=== PATIENT | female | born 2000 | race American Indian/Alaskan Native ===

== ENCOUNTER 2018-04-12 17:19 | Emergency (ER) | payer MEDICAID ==
[2018-04-12 17:41] VITALS: BP 103/67; PULSE 100; RESP 20; TEMP 98.4; O2SAT 99
[2018-04-12] MEDS ORDERED: Amoxicillin-Clav 875-125 mg Tab PO STA (18:04)
[2018-04-12] MEDS ORDERED: Amoxicillin-Clav 875-125 mg Tab PO ONE (18:18)
--- NOTE | 2018-04-12 18:24 | ED PDOC ---
HPI: Skin/Bite Injury Time Seen by Provider: 04/12/18 17:45 Chief Complaint (Nursing): Abnormal Skin Integrity Chief Complaint (Provider): insect bites History Per: Patient, Family (mother) Additional Complaint(s): 18-year-old female presents with multiple insect bites to bilateral lower extremities status post being stung several times by mosquitoes last night. Patient woke up this morning with swelling and redness to insect bite regions. She is having difficulty walking secondary to pain and denies any fever or chills. No meds taken for relief of symptoms. PMD: none Past Medical History Reviewed: Historical Data, Nursing Documentation, Vital Signs Vital Signs: Last Vital Signs Temp 98.4 F 04/12/18 17:38 Pulse 100 H 04/12/18 17:38 Resp 20 04/12/18 17:38 BP 103/67 04/12/18 17:38 Pulse Ox 99 04/12/18 17:38 - Medical History PMH: No Chronic Diseases - Surgical History Surgical History: No Surg Hx - Family History Family History: States: No Known Family Hx - Living Arrangements Living Arrangements: With Family - Social History Current smoker - smoking cessation education provided: No Alcohol: None Drugs: Denies - Home Medications Home Medications: Ambulatory Orders Medication Instructions Recorded Amoxicillin/Clavulanate [Augmentin 1 tab PO BID #14 tab 04/12/18 875 MG-125 MG] Clindamycin [Cleocin] 300 mg PO TID #21 cap 04/12/18 Prednisone 50 mg PO DAILY #5 tablet 04/12/18 - Allergies Allergies/Adverse Reactions: Allergies Allergy/AdvReac Type Severity Reaction Status Date / Time No Known Allergies Allergy Verified 04/12/18 17:37 Review of Systems ROS Statement: Except As Marked, All Systems Reviewed And Found Negative Constitutional: Negative for: Fever Skin: Positive for: Other (multiple insect bites bilateral lower extremities) Physical Exam - Reviewed Nursing Documentation Reviewed: Yes Vital Signs Reviewed: Yes - Physical Exam Appears: Positive for: Well, Non-toxic, No Acute Distress Skin: Positive for: Rash (Multiple insect bites noted to bilateral lower extremities with localized surrounding erythema and induration, moderately tender to palpation with warmth) Eye Exam: Positive for: Normal appearance Cardiovascular/Chest: Positive for: Regular Rate, Rhythm Respiratory: Positive for: Normal Breath Sounds Neurologic/Psych: Positive for: Alert, Oriented - Laboratory Results Urine POC: Negative - ECG O2 Sat by Pulse Oximetry: 99 Pulse Ox Interpretation: Normal Medical Decision Making Medical Decision Making: Impression: Allergic reaction to insect bites Plan: test IM solumedrol 125 mg PO benadryl 50 mg Initial doses PO clindamycin and augmentin Patient given prescriptions for prednisone, clindamycin and Augmentin to cover for allergic reaction and possible infection of multiple insect bites to lower extremities. Advised Benadryl [id number] for itch relief and follow up with primary doctor in 2-3 days. Disposition - Clinical Impression Clinical Impression: Insect bites and stings - Patient ED Disposition Is Patient to be Admitted: No Counseled Patient/Family Regarding: Diagnosis, Need For Followup, Rx Given - Disposition Referrals: [facility] [Outside] Disposition: Routine/Home Disposition Time: 18:29 Condition: STABLE Additional Instructions: Take rx medications as directed along with over the counter benadryl (2 25 mg tabs every 6 hrs). Keep area clean and dry, do not apply any topical creams. Ice and elevate affected area. Follow-up in 2-3 days with primary care doctor or return to emergency room any time if acutely worse. Prescriptions: Amoxicillin/Clavulanate [Augmentin 875 MG-125 MG] 1 tab PO BID #14 tab Clindamycin [Cleocin] 300 mg PO TID #21 cap Prednisone 50 mg PO DAILY #5 tablet Instructions: Insect Bites and Stings
== END 2018-04-12 19:07 | disposition home or self-care (01) ==
LOC: H.ER 17:19
DX: S80.861A Insect bite (nonvenomous), right lower leg, initial encounter (principal); W57.XXXA Bitten or stung by nonvenomous insect and other nonvenomous arthropods, initial encounter; Y92.89 Other specified places as the place of occurrence of the external cause
CPT/HCPCS: 81025; 96372; 99282; J2930

== ENCOUNTER 2018-04-15 11:06 | Emergency (ER) | payer MEDICAID ==
[2018-04-15 11:22] VITALS: BMI 30.2
[2018-04-15 11:24] VITALS: BP 111/72; PULSE 74; RESP 16; TEMP 98.3; O2SAT 100
--- NOTE | 2018-04-15 11:51 | ED PDOC ---
HPI: Skin/Bite Injury Time Seen by Provider: 04/15/18 11:15 Chief Complaint (Nursing): Abnormal Skin Integrity History Per: Patient Onset/Duration Of Symptoms: Days (3) Current Symptoms Are (Timing): Better Location Of Injury: Right: Leg, Left: Leg Quality Of Symptoms: Itching Additional Complaint(s): Seen in ED 3 days post mosquito bites. Improved but still with itching. Redness and swelling improved. Past Medical History Vital Signs: Last Vital Signs Temp 98.3 F 04/15/18 11:23 Pulse 74 04/15/18 11:23 Resp 16 04/15/18 11:23 BP 111/72 04/15/18 11:23 Pulse Ox 100 04/15/18 11:23 - Medical History PMH: No Chronic Diseases - Family History Family History: States: Unknown Family Hx - Home Medications Home Medications: Ambulatory Orders Medication Instructions Recorded Cephalexin [Keflex] 500 mg PO QID #20 cap 02/18/16 Naproxen 375 mg PO Q8 PRN #21 tab 02/18/16 Ibuprofen [Motrin] 400 mg PO Q6 #30 tab 03/25/16 Sulfamethoxazole/Trimethoprim 1 tab PO BID #14 tab 09/30/16 [Bactrim DS 800 mg-160 mg] Famotidine [Pepcid] 20 mg PO BID #10 tab 02/03/18 Ondansetron ODT [Zofran ODT] 4 mg PO Q8 PRN #3 odt 02/03/18 Cetirizine HCl [Zyrtec] 10 mg PO DAILY #10 capsule 04/15/18 - Allergies Allergies/Adverse Reactions: Allergies Allergy/AdvReac Type Severity Reaction Status Date / Time No Known Allergies Allergy Verified 09/30/16 13:41 Review of Systems Constitutional: Negative for: Fever Skin: Positive for: Rash, Other (itching) Physical Exam - Physical Exam Appears: Positive for: Non-toxic, No Acute Distress Skin: Positive for: Rash (No erythema or swelling noted. No drainage) - ECG O2 Sat by Pulse Oximetry: 100 Disposition - Clinical Impression Clinical Impression: Bite, insect - Patient ED Disposition Is Patient to be Admitted: No Counseled Patient/Family Regarding: Diagnosis, Need For Followup, Rx Given - Disposition Referrals: [facility] [Outside] Disposition: Routine/Home Disposition Time: 11:51 Condition: FAIR Prescriptions: Cetirizine HCl [Zyrtec] 10 mg PO DAILY #10 capsule Instructions: Insect Bites and Stings
== END 2018-04-15 12:30 | disposition home or self-care (01) ==
LOC: MERGE 11:06 → H.ER 11:06
DX: S80.869A Insect bite (nonvenomous), unspecified lower leg, initial encounter (principal); W57.XXXA Bitten or stung by nonvenomous insect and other nonvenomous arthropods, initial encounter; Y92.89 Other specified places as the place of occurrence of the external cause

== ENCOUNTER 2018-06-24 16:24 | Emergency (ER) | payer MEDICAID ==
[2018-06-24 16:25] VITALS: BMI 30.2
[2018-06-24 16:39] VITALS: BP 119/73; PULSE 82; RESP 18; O2SAT 99
--- NOTE | 2018-06-24 18:27 | ED PDOC ---
HPI: General Adult Time Seen by Provider: 06/24/18 16:40 Chief Complaint (Nursing): Fever Chief Complaint (Provider): Fever, Body Aches, Headache History Per: Patient History/Exam Limitations: no limitations Onset/Duration Of Symptoms: Days (x2) Current Symptoms Are (Timing): Still Present Additional Complaint(s): 18 year old female presents to the ED with mother for evaluation of fever, body aches, and headache the last two days. Patient reports taking Tylenol, last dose 1 tab 1200 today, to manage her symptoms, which she reports are worse at night. She denies any other symptoms. 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 PMD: Monique Christopher Past Medical History Reviewed: Historical Data, Nursing Documentation, Vital Signs Vital Signs: Last Vital Signs Temp 98.9 F 06/24/18 19:06 Pulse 82 06/24/18 16:36 Resp 18 06/24/18 16:36 BP 119/73 06/24/18 16:36 Pulse Ox 99 06/24/18 18:31 - Medical History PMH: Gastritis Other PMH: eczema - Surgical History Surgical History: No Surg Hx - Family History Family History: States: Unknown Family Hx - Living Arrangements Living Arrangements: With Family - Social History Current smoker - smoking cessation education provided: No Alcohol: None Drugs: Denies - Home Medications Home Medications: Ambulatory Orders Medication Instructions Recorded Cephalexin [Keflex] 500 mg PO QID #20 cap 02/18/16 Naproxen 375 mg PO Q8 PRN #21 tab 02/18/16 Ibuprofen [Motrin] 400 mg PO Q6 #30 tab 03/25/16 Sulfamethoxazole/Trimethoprim 1 tab PO BID #14 tab 09/30/16 [Bactrim DS 800 mg-160 mg] Famotidine [Pepcid] 20 mg PO BID #10 tab 02/03/18 Ondansetron ODT [Zofran ODT] 4 mg PO Q8 PRN #3 odt 02/03/18 Amoxicillin/Clavulanate [Augmentin 1 tab PO BID #14 tab 04/12/18 875 MG-125 MG] Clindamycin [Cleocin] 300 mg PO TID #21 cap 04/12/18 Prednisone 50 mg PO DAILY #5 tablet 04/12/18 Cetirizine HCl [Zyrtec] 10 mg PO DAILY #10 capsule 04/15/18 Ibuprofen [Motrin] 600 mg PO Q6 #20 tab 06/24/18 - Allergies Allergies/Adverse Reactions: Allergies Allergy/AdvReac Type Severity Reaction Status Date / Time No Known Allergies Allergy Verified 04/12/18 17:37 Review of Systems ROS Statement: Except As Marked, All Systems Reviewed And Found Negative Constitutional: Positive for: Fever, Other (body aches) Neurological: Positive for: Headache Physical Exam - Reviewed Nursing Documentation Reviewed: Yes Vital Signs Reviewed: Yes - Physical Exam Appears: Positive for: No Acute Distress Head Exam: Positive for: ATRAUMATIC, NORMOCEPHALIC Skin: Positive for: Normal Color, Warm, Dry Eye Exam: Positive for: Normal appearance, EOMI, PERRL ENT: Positive for: Normal ENT Inspection. Negative for: Pharyngeal Erythema, Tonsillar Swelling Neck: Positive for: Normal, Painless ROM, Supple Cardiovascular/Chest: Positive for: Regular Rate, Rhythm Respiratory: Positive for: Normal Breath Sounds. Negative for: Accessory Muscle Use, Respiratory Distress Gastrointestinal/Abdominal: Positive for: Normal Exam, Soft. Negative for: Tenderness Back: Positive for: Normal Inspection Extremity: Positive for: Normal ROM Neurologic/Psych: Positive for: Alert, Oriented (x3). Negative for: Motor/ Sensory Deficits - ECG O2 Sat by Pulse Oximetry: 99 (RA) Pulse Ox Interpretation: Normal Medical Decision Making Medical Decision Making: Time: 1707 Initial Impression: fever, body aches, headache Initial Plan: --Motrin 600 mg PO Pt reports feeling improved on re-eval. diagnostics not clinically indicated at this time. supportive care measures discussed Scribe Attestation: Documented by Melva Jackson, acting as a scribe for Gaviota Lozano PA-C. Provider Scribe Attestation: All medical record entries made by the Scribe were at my direction and personally dictated by me. I have reviewed the chart and agree that the record accurately reflects my personal performance of the history, physical exam, medical decision making, and the department course for this patient. I have also personally directed, reviewed, and agree with the discharge instructions and disposition. Disposition - Clinical Impression Clinical Impression: Viral syndrome, Fever in adult - Patient ED Disposition Is Patient to be Admitted: No - Disposition Disposition: Routine/Home Disposition Time: 19:24 Condition: STABLE Prescriptions: Ibuprofen [Motrin] 600 mg PO Q6 #20 tab Instructions: Fever, Adult (DC), Viral Syndrome (DC) Forms: [facility] ([place]), [facility] ED School/Work Excuse
[2018-06-24 19:06] VITALS: TEMP 98.9
== END 2018-06-24 19:33 | disposition home or self-care (01) ==
LOC: H.ER 16:24
DX: B34.9 Viral infection, unspecified (principal)

== ENCOUNTER 2018-08-05 21:47 | Emergency (ER) | payer MEDICAID ==
[2018-08-05 21:47] VITALS: BMI 30.2
[2018-08-05 21:58] VITALS: RESP 18
--- NOTE | 2018-08-05 23:21 | ED PDOC ---
HPI: Abdomen Time Seen by Provider: 08/05/18 22:01 Chief Complaint (Nursing): Abdominal Pain Chief Complaint (Provider): Abdominal pain History Per: Patient History/Exam Limitations: no limitations Onset/Duration Of Symptoms: Days Outside of [place] travel?: No Current Symptoms Are (Timing): Still Present Associated Symptoms: Nausea, Loss Of Appetite Additional History Per: Patient Additional Complaint(s): 18yo female, otherwise well, comes to ER for evaluation of abdominal pain x 2 weeks, most present while eating. She reports nausea and abdominal discomfort, and subsequent loss of appetite. She denies any vomiting or diarrhea but states today she ate a bagel with suspicious cream cheese after which her symptoms worsened. She reports the pain is diffuse and non-radiating; denies any fever or urinary symptoms. She does report urinary frequency but states she has increased her PO fluid intake in order to stay well hydrated. Otherwise, denies any recent travels, known sick contacts, or recent antibiotics use. PMD: Monique Christopher Past Medical History Reviewed: Historical Data, Nursing Documentation, Vital Signs Vital Signs: Last Vital Signs Temp 98.4 F 08/06/18 00:45 Pulse 91 H 08/06/18 00:45 Resp 18 08/06/18 00:45 BP 122/78 08/06/18 00:45 Pulse Ox 100 08/06/18 00:45 - Medical History PMH: No Chronic Diseases, Gastritis - Surgical History Surgical History: No Surg Hx - Family History Family History: States: No Known Family Hx - Home Medications Home Medications: Ambulatory Orders Medication Instructions Recorded Cephalexin [Keflex] 500 mg PO QID #20 cap 02/18/16 Naproxen 375 mg PO Q8 PRN #21 tab 02/18/16 Ibuprofen [Motrin] 400 mg PO Q6 #30 tab 03/25/16 Sulfamethoxazole/Trimethoprim 1 tab PO BID #14 tab 09/30/16 [Bactrim DS 800 mg-160 mg] Famotidine [Pepcid] 20 mg PO BID #10 tab 02/03/18 Ondansetron ODT [Zofran ODT] 4 mg PO Q8 PRN #3 odt 02/03/18 Amoxicillin/Clavulanate [Augmentin 1 tab PO BID #14 tab 04/12/18 875 MG-125 MG] Clindamycin [Cleocin] 300 mg PO TID #21 cap 04/12/18 Prednisone 50 mg PO DAILY #5 tablet 04/12/18 Cetirizine HCl [Zyrtec] 10 mg PO DAILY #10 capsule 04/15/18 Ibuprofen [Motrin] 600 mg PO Q6 #20 tab 06/24/18 Ondansetron ODT [Zofran ODT] 1 odt PO Q6 PRN #20 odt 08/06/18 Polyethylene Glycol 3350 [Miralax] 17 gm PO DAILY PRN #1 bottle 08/06/18 - Allergies Allergies/Adverse Reactions: Allergies Allergy/AdvReac Type Severity Reaction Status Date / Time No Known Allergies Allergy Verified 08/05/18 21:51 Review of Systems ROS Statement: Except As Marked, All Systems Reviewed And Found Negative (as per HPI) Constitutional: Negative for: Fever, Chills Gastrointestinal: Positive for: Nausea, Abdominal Pain. Negative for: Vomiting , Diarrhea, Constipation Genitourinary Female: Positive for: Frequency Physical Exam - Reviewed Nursing Documentation Reviewed: Yes Vital Signs Reviewed: Yes - Physical Exam Appears: Positive for: Non-toxic, No Acute Distress Head Exam: Positive for: ATRAUMATIC, NORMOCEPHALIC Skin: Positive for: Warm, Dry Eye Exam: Positive for: EOMI, PERRL ENT: Positive for: Pharynx Is (clear). Negative for: Pharyngeal Erythema, Tonsillar Exudate Neck: Positive for: Painless ROM, Supple Cardiovascular/Chest: Positive for: Regular Rate, Rhythm, Chest Non Tender. Negative for: Murmur Respiratory: Positive for: Normal Breath Sounds. Negative for: Wheezing Gastrointestinal/Abdominal: Positive for: Soft, Tenderness (minimal diffuse tenderness to palpation, however it is distractable). Negative for: Mass, Distended, Guarding, Rebound Back: Positive for: Normal Inspection. Negative for: Muscle Spasm Extremity: Positive for: Normal ROM. Negative for: Deformity Lymphatic: Negative for: Adenopathy Neurologic/Psych: Positive for: Alert, Oriented. Negative for: Motor/Sensory Deficits - Laboratory Results Result Diagrams: 08/05/18 23:09 08/05/18 23:09 - ECG O2 Sat by Pulse Oximetry: 99 (RA) Pulse Ox Interpretation: Normal Medical Decision Making Medical Decision Making: Impression: Abdominal pain Differential including but not limited to: Gastritis, peptic ulcer disease, dyspepsia, Plan: * Labs * XR Obstructive series * Bentyl 20mg PO * Zofran 4mg IVP Labs unremarkable. Udip neg for preg. Abd series: NSBGP, mild constipation, no air fluid levels Findings do not demonstrate emergent pathology and pt stable for discharge with outpatient follow up for further eval and mgmt. DW pt findings and plan of care. Scribe Attestation: Documented by Kimberly Gomez, acting as a scribe for Gaviota Abbasi MD. Provider Scribe Attestation: All medical record entries made by the Scribe were at my direction and personally dictated by me. I have reviewed the chart and agree that the record accurately reflects my personal performance of the history, physical exam, medical decision making, and the department course for this patient. I have also personally directed, reviewed, and agree with the discharge instructions and disposition. Disposition - Clinical Impression Clinical Impression: Abdominal pain - Disposition Referrals: [facility] [place] [Outside] (FOLLOW UP NEXT WEEK WITH CLINIC FOR GI REFERRAL) Disposition: Routine/Home Disposition Time: 00:24 Condition: STABLE Prescriptions: Ondansetron ODT [Zofran ODT] 1 odt PO Q6 PRN #20 odt PRN Reason: Nausea/Vomiting Polyethylene Glycol 3350 [Miralax] 17 gm PO DAILY PRN #1 bottle PRN Reason: Constipation Instructions: Acute Abdomen (Belly Pain) Forms: [facility] ED School/Work Excuse
[2018-08-05 23:27] LABS: BASO % 0.5 % (0.0-2.0); EOS % 0.3 % (0.0-4.0); HEMOGLOBIN 13.9 g/dL (12.0-16.0); LYMPH # 1.5 K/uL (1.0-4.3); LYMPH % 25.7 % (20.0-40.0); MEAN CELL VOLUME 81.5 fl (81.0-99.0); MEAN CORPUSCULAR HGB CONC 33.2 g/dL (33.0-37.0); MEAN PLATELET VOLUME 7.9 fl (7.2-11.7); MONO # 0.6 K/uL (0.0-0.8); NEUT # 3.6 K/uL (1.8-7.0); NEUT % 63.5 % (50.0-75.0); NRBC % 0.3 % (0.0-0.0); RBC 5.13 Mil/uL (3.80-5.20); WHITE BLOOD COUNT 5.7 K/uL (4.8-10.8)
[2018-08-05 23:33] LABS: ALB/GLOB RATIO 1.4 (1.0-2.1); ALBUMIN 4.7 g/dL (3.5-5.0); ALT/SGPT 20 U/L (9-52); AST/SGOT 31 U/L (14-36); BLOOD UREA NITROGEN 8 mg/dl (7-17); CALCIUM 9.9 mg/dL (8.4-10.2); GFR NON-AFRICAN AMERICAN > 60; LIPASE 34 U/L (23-300)
[2018-08-06 00:24] LABS: BARBITURATES, UR NEGATIVE (NEGATIVE); BENZODIAZEPINES, UR NEGATIVE (NEGATIVE); OPIATES, UR NEGATIVE (NEGATIVE); PHENCYCLIDINE, UR NEGATIVE (NEGATIVE)
[2018-08-06 01:29] VITALS: BP 122/78; PULSE 91; TEMP 98.4
--- NOTE | 2018-08-06 09:36 | RAD ---
Date of service: 08/05/2018 PROCEDURE: Radiographs of the chest and abdomen (obstructive series) HISTORY: abd pain COMPARISON: No prior. TECHNIQUE: AP radiograph of the chest, with upright and supine radiographs of the abdomen. FINDINGS: CHEST: Lungs: Clear. Cardiovascular: Normal size heart. No pulmonary vascular congestion. Pleura: No pleural fluid. No pneumothorax. Other findings: None. ABDOMEN AND PELVIS: Bowel: Unremarkable bowel gas pattern. No evidence of mechanical obstruction. Free air: None. Bones: Unremarkable. Other findings: None. IMPRESSION: Unremarkable radiographs of chest and abdomen. No evidence of mechanical bowel obstruction.
[2018-08-09 16:32] VITALS: O2SAT 99
== END 2018-08-06 00:45 | disposition home or self-care (01) ==
LOC: H.ER 21:47
DX: R10.9 Unspecified abdominal pain (principal); K59.00 Constipation, unspecified
CPT/HCPCS: 74022; 80053; 80324; 80345; 80346; 80349; 80353; 80358; 80361; 81025; 83690; 83992; 85025; 87491; 87591; 96374; 99284; J2405

== ENCOUNTER 2018-08-20 16:37 | Emergency (ER) | payer MEDICAID ==
[2018-08-20 16:37] VITALS: BMI 30.2
[2018-08-20 17:18] VITALS: BP 119/78; PULSE 86; RESP 16; TEMP 98.6; O2SAT 99
[2018-08-20] MEDS ORDERED: Tobramycin 0.3% OPHT SOLN OS ONE (18:59)
--- NOTE | 2018-08-20 19:29 | ED PDOC ---
HPI: CCC, URI, Sore Throat Chief Complaint (Provider): ENT problem History Per: Patient History/Exam Limitations: no limitations Onset/Duration Of Symptoms: Days (2x) Current Symptoms Are (Timing): Still Present Location Of Pain: Ear(s) (left), Sinus/es, Other (left eye redness) Associated Symptoms: Nasal Congestion. denies: Fever, Other (vision changes) Ear Symptoms: Left: Ear Pain Severity: Moderate Additional Complaint(s): 18 year old female with no pertinent past medical history presents to the ED with complaints of upper respiratory infection symptoms that started 2x days ago. Patient states that 2x days ago she had nasal congestion, yesterday she developed left ear pain, and this morning she developed redness of her left eye and lower eyelid swelling, but the swelling has seemed to improve. Patient denies eye pain and vision changes. PMD: Monique Christopher MD <Mary Fairchild - Last Filed: 08/20/18 23:18> <Vera Christopher - Last Filed: 08/22/18 15:25> Time Seen by Provider: 08/20/18 18:39 Chief Complaint (Nursing): ENT Problem Past Medical History Reviewed: Historical Data, Nursing Documentation, Vital Signs Vital Signs: Last Vital Signs Temp 98.6 F 08/20/18 17:16 Pulse 86 08/20/18 17:16 Resp 16 08/20/18 17:16 BP 119/78 08/20/18 17:16 Pulse Ox 99 08/20/18 17:16 - Medical History PMH: Gastritis - Family History Family History: States: Unknown Family Hx <Mary Fairchild - Last Filed: 08/20/18 23:18> Vital Signs: Last Vital Signs Temp 98.6 F 08/20/18 17:16 Pulse 86 08/20/18 17:16 Resp 16 08/20/18 17:16 BP 119/78 08/20/18 17:16 Pulse Ox 99 08/20/18 23:19 <Vera Christopher - Last Filed: 08/22/18 15:25> - Home Medications Home Medications: Ambulatory Orders Medication Instructions Recorded Cephalexin [Keflex] 500 mg PO QID #20 cap 02/18/16 RX: Naproxen 375 mg PO Q8 PRN #21 tab 02/18/16 Ibuprofen [Motrin] 400 mg PO Q6 #30 tab 03/25/16 Sulfamethoxazole/Trimethoprim 1 tab PO BID #14 tab 09/30/16 [Bactrim DS 800 mg-160 mg] Famotidine [Pepcid] 20 mg PO BID #10 tab 02/03/18 Ondansetron ODT [Zofran ODT] 4 mg PO Q8 PRN #3 odt 02/03/18 Amoxicillin/Clavulanate [Augmentin 1 tab PO BID #14 tab 04/12/18 875 MG-125 MG] RX: Clindamycin [Cleocin] 300 mg PO TID #21 cap 04/12/18 RX: Prednisone 50 mg PO DAILY #5 tablet 04/12/18 Cetirizine HCl [Zyrtec] 10 mg PO DAILY #10 capsule 04/15/18 Ibuprofen [Motrin] 600 mg PO Q6 #20 tab 06/24/18 Ondansetron ODT [Zofran ODT] 1 odt PO Q6 PRN #20 odt 08/06/18 Polyethylene Glycol 3350 [Miralax] 17 gm PO DAILY PRN #1 bottle 08/06/18 Azithromycin [Zithromax] 250 mg PO DAILY 4 Days #4 tab 08/20/18 - Allergies Allergies/Adverse Reactions: Allergies Allergy/AdvReac Type Severity Reaction Status Date / Time No Known Allergies Allergy Verified 08/20/18 17:15 Review of Systems ROS Statement: Except As Marked, All Systems Reviewed And Found Negative Eyes: Positive for: Redness (left eye redness. lower eyelid swelling). Negative for: Pain, Vision Change ENT: Positive for: Ear Pain (left ear pain), Nose Congestion <Mary Fairchild S - Last Filed: 08/20/18 23:18> Physical Exam - Reviewed Nursing Documentation Reviewed: Yes Vital Signs Reviewed: Yes - Physical Exam Appears: Positive for: Well, Non-toxic, No Acute Distress Head Exam: Positive for: ATRAUMATIC, NORMOCEPHALIC Skin: Positive for: Normal Color Eye Exam: Positive for: Normal appearance, Other (left eye: mild injection, no purulent drainage, no crusting of lashes.) ENT: Positive for: TM Is/Are (right ear normal. left TM erythematous and bulging.) Cardiovascular/Chest: Positive for: Regular Rate, Rhythm Respiratory: Positive for: Normal Breath Sounds Neurologic/Psych: Positive for: Alert, Oriented (3x) <Mary Fairchild Iggy - Last Filed: 08/20/18 23:18> - ECG O2 Sat by Pulse Oximetry: 99 (RA) Pulse Ox Interpretation: Normal <Mary Fairchild - Last Filed: 08/20/18 23:18> Medical Decision Making Medical Decision Makin:39 Initial impression: 18 year old female with upper respiratory infection symptoms. Initial plan: * upreg * motrin tab 600 mg PO * tobrex 0.3% ophth soln 1 drop OS once * zithromac 500 mg PO * reevaluation 19:10 Patient is given a motrin tab, zithromax, and one tobrex eyedrop (in left eye) in ED. Patient will be discharged home and is given Rx for tobrex eye drops with instructions to put 1-2 drops in left eye 4x daily, and continue with zithromax. Counseling was provided and all questions were answered regarding diagnosis and need for follow up with PMD next week. There is agreement to discharge plan. Return if symptoms persist or worsen. Scribe Attestation: Documented by Vera Bond, acting as a scribe for Mary Fairchild PA-C. Provider Scribe Attestation: All medical record entries made by the Scribe were at my direction and personally dictated by me. I have reviewed the chart and agree that the record accurately reflects my personal performance of the history, physical exam, medical decision making, and the department course for this patient. I have also personally directed, reviewed, and agree with the discharge instructions and disposition. <Mary Fairchild S - Last Filed: 08/20/18 23:18> Disposition - Disposition Disposition: Routine/Home Disposition Time: 21:00 <Mary Fairchild - Last Filed: 08/20/18 23:18> <Vera Christopher - Last Filed: 08/22/18 15:25> - Clinical Impression Clinical Impression: Acute ear infection, Conjunctivitis - Disposition Condition: IMPROVED Additional Instructions: continue eye drops 1-2 drops left eye four times per day x 1 week. Prescriptions: Azithromycin [Zithromax] 250 mg PO DAILY 4 Days #4 tab Instructions: Ear Infections (Otitis Media), Conjunctivitis ([place]) Forms: [facility] ([place]), [facility] ED School/Work Excuse Addendum Addendum: 08/22/18 15:25 Reviewed chart and agree with PA assessment and plan. <Vera Christopher - Last Filed: 08/22/18 15:25>
== END 2018-08-20 20:00 | disposition home or self-care (01) ==
LOC: H.ER 16:37
DX: H10.9 Unspecified conjunctivitis (principal)

== ENCOUNTER 2018-09-01 01:07 | Emergency (ER) | payer MEDICAID ==
[2018-09-01 01:27] VITALS: BMI 26.2
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
[2018-09-01 02:55] VITALS: TEMP 99.4
[2018-09-01 02:57] VITALS: BP 123/71; PULSE 107; RESP 17
[2018-09-01 03:04] VITALS: O2SAT 99
== END 2018-09-01 02:54 | disposition home or self-care (01) ==
LOC: H.ER 01:07
DX: S00.81XA Abrasion of other part of head, initial encounter (principal); V43.62XA Car passenger injured in collision with other type car in traffic accident, initial encounter; Y92.410 Unspecified street and highway as the place of occurrence of the external cause

== ENCOUNTER 2018-12-21 13:44 | Emergency (ER) | payer MEDICAID ==
[2018-12-21 13:44] VITALS: BMI 26.2
[2018-12-21 14:04] VITALS: RESP 18
--- NOTE | 2018-12-21 15:59 | ED PDOC ---
HPI: CCC, URI, Sore Throat Chief Complaint (Provider): left ear pain and fever History Per: Patient History/Exam Limitations: no limitations Onset/Duration Of Symptoms: Days (x1) Current Symptoms Are (Timing): Still Present Location Of Pain: Ear(s) (left) Sick Contacts (Context): None Associated Symptoms: Fever, Cough (dry), Nasal Congestion, Vomiting (x3), Other (body aches). denies: Sore Throat Ear Symptoms: Left: Ear Pain Additional Complaint(s): Shazia Posada is a 18 year old female, with no significant past medical history, who presents to the emergency department complaining of fever and left ear pain associated with a dry cough, nasal congestion and body aches. Patient states she developed a fever to over 100 last night as well as a dry cough. This morning she developed left ear pain and has been using OTC anesthetic ear drops with some improvement. 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 Patient states she had x3 episodes of emesis today but has been eating and drinking normally. She denies any sore throat, diarrhea, abdominal pain, sick contacts, shortness of breath or other medical complaints. PMD: Monique Christopher <Juana Elizondo - Last Filed: 12/21/18 16:24> <Vera Christopher - Last Filed: 01/02/19 13:51> Time Seen by Provider: 12/21/18 14:22 Chief Complaint (Nursing): ENT Problem Past Medical History Reviewed: Historical Data, Nursing Documentation, Vital Signs Vital Signs: Last Vital Signs Temp 100.6 F H 12/21/18 15:21 Pulse 116 H 12/21/18 14:02 Resp 18 12/21/18 14:02 BP 119/81 12/21/18 14:02 Pulse Ox 99 12/21/18 14:02 - Medical History PMH: Gastritis - Surgical History Surgical History: No Surg Hx - Family History Family History: States: Unknown Family Hx - Social History Current smoker - smoking cessation education provided: No Alcohol: None Drugs: Denies <Juana Elizondo - Last Filed: 12/21/18 16:24> Vital Signs: Last Vital Signs Temp 100.0 F H 12/21/18 17:13 Pulse 96 H 12/21/18 17:13 Resp 18 12/21/18 17:13 BP 117/75 12/21/18 17:13 Pulse Ox 100 12/21/18 17:13 <Vera Christopher - Last Filed: 01/02/19 13:51> - Home Medications Home Medications: Ambulatory Orders Medication Instructions Recorded Cephalexin [Keflex] 500 mg PO QID #20 cap 02/18/16 Naproxen 375 mg PO Q8 PRN #21 tab 02/18/16 Ibuprofen [Motrin] 400 mg PO Q6 #30 tab 03/25/16 Sulfamethoxazole/Trimethoprim 1 tab PO BID #14 tab 09/30/16 [Bactrim DS 800 mg-160 mg] Famotidine [Pepcid] 20 mg PO BID #10 tab 02/03/18 Ondansetron ODT [Zofran ODT] 4 mg PO Q8 PRN #3 odt 02/03/18 Amoxicillin/Clavulanate [Augmentin 1 tab PO BID #14 tab 04/12/18 875 MG-125 MG] Clindamycin [Cleocin] 300 mg PO TID #21 cap 04/12/18 Prednisone 50 mg PO DAILY #5 tablet 04/12/18 Cetirizine HCl [Zyrtec] 10 mg PO DAILY #10 capsule 04/15/18 Ibuprofen [Motrin] 600 mg PO Q6 #20 tab 06/24/18 Ondansetron ODT [Zofran ODT] 1 odt PO Q6 PRN #20 odt 08/06/18 Polyethylene Glycol 3350 [Miralax] 17 gm PO DAILY PRN #1 bottle 08/06/18 Azithromycin [Zithromax] 250 mg PO DAILY 4 Days #4 tab 08/20/18 Bacitracin Ointment [Bacitracin] 1 applic TOP DAILY #1 tube 09/01/18 Ibuprofen [Motrin Tab] 600 mg PO Q6 PRN 7 Days tab 12/21/18 Oseltamivir Phosphate [Tamiflu] 75 mg PO BID 5 Days capsule 12/21/18 Penicillin VK [Penicillin VK Tab] 500 mg PO BID 10 Days tab 12/21/18 - Allergies Allergies/Adverse Reactions: Allergies Allergy/AdvReac Type Severity Reaction Status Date / Time No Known Allergies Allergy Verified 09/01/18 01:27 Review of Systems ROS Statement: Except As Marked, All Systems Reviewed And Found Negative Constitutional: Positive for: Fever, Other (body aches) ENT: Positive for: Ear Pain (left), Nose Congestion. Negative for: Throat Pain Respiratory: Positive for: Cough (dry). Negative for: Shortness of Breath Gastrointestinal: Positive for: Vomiting. Negative for: Abdominal Pain, Diarrhea <Juana Elizondo - Last Filed: 12/21/18 16:24> Physical Exam - Reviewed Nursing Documentation Reviewed: Yes Vital Signs Reviewed: Yes - Physical Exam Appears: Positive for: Uncomfortable Head Exam: Positive for: ATRAUMATIC, NORMAL INSPECTION, NORMOCEPHALIC Skin: Positive for: Normal Color, Warm, Dry Eye Exam: Positive for: Normal appearance, EOMI, PERRL ENT: Positive for: TM Is/Are (Left TM: erythematous with infusion but no bulging of the TM. Right TM normal. ), Nasal Congestion, Pharyngeal Erythema (mild). Negative for: Tonsillar Exudate, Tonsillar Swelling Neck: Positive for: Normal, Painless ROM Cardiovascular/Chest: Positive for: Regular Rate, Rhythm. Negative for: Murmur Respiratory: Positive for: Normal Breath Sounds. Negative for: Respiratory Distress Gastrointestinal/Abdominal: Positive for: Normal Exam, Soft. Negative for: Tenderness, Guarding, Rebound Back: Positive for: Normal Inspection Extremity: Positive for: Normal ROM (upper and lower extremities). Negative for: Deformity, Swelling Lymphatic: Positive for: Normal Exam Neurologic/Psych: Positive for: Alert, Oriented <Juana Elizondo - Last Filed: 12/21/18 16:24> - ECG O2 Sat by Pulse Oximetry: 99 (RA) Pulse Ox Interpretation: Normal <Juana Elizondo - Last Filed: 12/21/18 16:24> Medical Decision Making Medical Decision Making: Time: 14:22 Initial Impression: Viral illness Initial Plan: --Urine --Penicillin VK Tab 500 mg PO --Tamiflu 75 mg PO --Tylenol 325mg tab 975 mg PO --Influenza A B --Rapid Strep Group A Antigen --Reevaluation 15:40 -Labs show positive flu and strep. Scribe Attestation: Documented by Eris Ramsey, acting as a scribe for Juana Elizondo PA-C. Provider Scribe Attestation: All medical record entries made by the Scribe were at my direction and personally dictated by me. I have reviewed the chart and agree that the record accurately reflects my personal performance of the history, physical exam, me dical decision making, and the department course for this patient. I have also personally directed, reviewed, and agree with the discharge instructions and disposition. <Juana Elizondo - Last Filed: 12/21/18 16:24> Disposition <Juana Elizondo - Last Filed: 12/21/18 16:24> - Disposition Disposition: Routine/Home Disposition Time: 17:15 <Vera Christopher - Last Filed: 01/02/19 13:51> - Clinical Impression Clinical Impression: Influenza A, Strep pharyngitis - Disposition Referrals: Monique Christopher MD [Family Provider] - Condition: STABLE Additional Instructions: You are very contagious and should avoid close contact with others. Get lots of rest and drink plenty of fluids. Take Tylenol and Ibuprofen for fevers and body aches. Return to ER if you develop trouble breathing or are unable to tolerate fluids. Take Tamiflu to reduce your symptoms. Prescriptions: Ibuprofen [Motrin Tab] 600 mg PO Q6 PRN 7 Days tab PRN Reason: Pain, Moderate (4-7) Oseltamivir Phosphate [Tamiflu] 75 mg PO BID 5 Days capsule Penicillin VK [Penicillin VK Tab] 500 mg PO BID 10 Days tab Instructions: Flu, Adult (DC), Sore Throat, Adult (DC) Forms: [employer] (Italian), [facility] School/Work Excuse Print Language: ISRAELI
[2018-12-21 17:14] VITALS: BP 117/75; PULSE 96; TEMP 100; O2SAT 100
== END 2018-12-21 17:47 | disposition home or self-care (01) ==
LOC: H.ER 13:44
DX: J02.0 Streptococcal pharyngitis (principal); J11.1 Influenza due to unidentified influenza virus with other respiratory manifestations